=== PATIENT | male | born 1945 | race Caucasian/White ===

== ENCOUNTER → 2017-02-14 | Day surgery (SDC) | payer OTHER ==
[~2017-02-14] MED LIST: ASPIRIN EC 325 MG TAB PO ONE; ASPIRIN EC 81 MG TAB PO ONE; ATROPINE SULFATE 1 MG/10 ML SYR IVP PRN; DIAZEPAM 5 MG TAB ONE; DIAZEPAM 5 MG TAB PO ONE; FAMOTIDINE 20 MG TAB ONE; FAMOTIDINE 20 MG TAB PO ONE; HEPARIN 10,000 UNIT/10 ML MDV ONE; HYDROCODONE/APAP 5/325 TAB PO PRN; IOPAMIDOL (ISOVUE-370) 150 ML BTL IV ONE; LIDOCAINE 1% 300 MG/30 ML SDV ONE; MIDAZOLAM 2 MG/2 ML VIAL ONE; NITROGLYCERIN 0.4 MG BTL SL PRN; NS 1,000 ML IV ONE; ONDANSETRON 4 MG/2 ML VIAL IVP PRN; OXYCODONE/APAP 5/325 TAB PO PRN; diphenhydrAMINE 25 MG CAP PO ONE; fentaNYL 100 MCG/2 ML INJ ONE
--- NOTE | 2017-02-14 10:32 | CPEKG ---
Heart Rate: 72 RR Interval: 833 P-R Interval: 204 QRSD Interval: 88 QT Interval: 408 QTC Interval: 447 P [place]: 86 QRS [place]: 25 T Wave [place]: 54 EKG Severity - NORMAL ECG - EKG Impression: SINUS RHYTHM Electronically Signed By: Melchor Crsos 14-Feb-2017 14:10:10
[2017-02-14 10:52] LABS: % IMMATURE GRANULYOCYTES 0.2 % (0.0-1.1); ABSOLUTE IMMATURE GRANULOCYTES 0.01 10^3/uL (0.00-0.10); ADD DIFF? NO; ADD MORPH? NO; ADD SCAN? NO; ATYPICAL LYMPHOCYTE FLAG 0 (0-99); FRAGMENT RBC FLAG 10 (0-99); HEMATOCRIT 42.9 % (40.0-51.0); HEMOGLOBIN 14.9 g/dL (13.7-17.5); LEFT SHIFT FLG 0 (0-99); LIPEMIA HEMOLYSIS FLAG 90 (0-99); MEAN CELL HEMOGLOBIN 32.4 pg (27.9-34.1); MEAN CELL HEMOGLOBIN CONCENTR. 34.7 g/dL (32.4-36.7); MEAN CELL VOLUME 93.3 fL (81.5-99.8); MEAN PLATELET VOLUME 9.8 fL (8.7-11.7); PLATELET CLUMPS FLAG 10 (0-99); PLATELET COUNT 233 10^3/uL (150-400); RED CELL DISTRIBUTION WIDTH 11.9 % (11.5-15.2)
[2017-02-14 11:00] LABS: INR 0.93 (0.83-1.16); PROTIME(PATIENT) 12.4 SEC (12.0-15.0)
[2017-02-14 11:14] LABS: ANION GAP 8 mEq/L (8-16); CALCIUM 9.4 mg/dL (8.5-10.4); CARBON DIOXIDE 23 mEq/l (22-31); CHLORIDE 108 mEq/L (97-110); CHOLESTEROL 162 mg/dL (140-220); CHOLESTEROL/HDL RATIO 3.86 RATIO (1.00-4.97); CREATININE 0.9 mg/dL (0.7-1.3); GLOMERULAR FILTRATION RATE > 60; GLUCOSE 128 mg/dL (70-100); HIGH DENSITY LIPOPROTEIN 42 mg/dL (40-65); LDL/HDL RATIO 1.62 RATIO (1.00-3.64); LOW DENSITY LIPOPROTEIN 68 mg/dL (80-100); MAGNESIUM 1.8 mg/dL (1.6-2.3); NON-HIGH DENSITY LIPOPROTEIN 120 mg/dL (90-129); POTASSIUM 4.7 mEq/L (3.5-5.2); SODIUM 139 mEq/L (134-144); TRIGLYCERIDE 263 mg/dL (40-150); VERY LOW DENSITY LIPOPROTEINS 52 mg/dL (8-25)
--- NOTE | 2017-02-14 22:53 | CPIP ---
[f rep st] INVASIVE CARDIAC PROCEDURE DATE OF PROCEDURE: 02/14/2017 INDICATION: The patient is 71 years old. He has known coronary disease. He underwent bypass surge ry 2 years ago in [place]. He has 2 vessels that have been bypassed. He presents now with symptoms of exertional dyspnea and an abnormal stress myocardial perfusion imaging study suggesting anterior ischemia that spares the septum. PROCEDURES: 1. Diagnostic left heart catheterization. 2. Coronary angiography. 3. Left ventriculography. 4. Saphenous vein graft angiography. 5. Left internal mammary artery graft angiography. TECHNIQUE: Following informed consent and in the fasting state, the patient was brought to the [facility] catheterization laboratory. His right groin was prepped and draped in the usual sterile fashion . 2% lidocaine was infiltrated into the groin. Using modified Seldinger technique, a 6-[place] Safe sheath was placed. Using the JL4 and JR4, imaging of the [place] coronary arteries was performed. Using the pigtail catheter, left ventriculography was performed as well as an aortic root angiogram. Using the internal mammary artery graft catheter, imaging of the left internal mammary artery was performed. Using the JR catheter, imaging of the saphenous vein graft to an obtuse marginal was per formed. Following the procedure, all catheters were removed from the body. FINDINGS: HEMODYNAMICS: Left ventricular pressure 143/9/18 mmHg. Aortic pressure 133/68/97 mmHg. CORONARY ANGIOGRAPHY: Left main: The left main is subtotally occluded in the mid portion of the ve ssel. There is antegrade opacification to the very proximal septal perforators and what appears to be a very small, severely diseased ramus intermedius branch. There is no antegrade opacification of the [place] LAD or circumflex. Left anterior descending: The left anterior descending is, as noted above, not opacified with nativ e injections of the left main. It is seen upon injection of the PASCUAL to the LAD. Circumflex: The circumflex is, as noted above, not opacified with [place] injections of the left debbie n. The obtuse marginal branch is opacified upon injection of the saphenous vein graft to the obtuse marginal; however, the [place] circumflex does not retrograde opacify. Right coronary artery: This is dominant. The vessel itself is diffusely diseased and tortuous. Th ere is a PDA as well as several posterolaterals. There is a mid 50% lesion immediately prior to the crux. The proximal vessel is extremely tortuous. PASCUAL to the LAD: The PASCUAL to the LAD is patent, both in its proximal and distal anastomoses. There was excellent opacification retrograde of the LAD back to the point of occlusion at the left main. There is also filling of a small, diffusely diseased diagonal branch. Saphenous vein graft to the obtuse marginal branch: This graft is widely patent throughout its cour se as well as the anastomoses. There is retrograde opacification of the obtuse marginal branch back to the point of occlusion at the origin from the left main. There is, however, no opacification of the [place] circumflex. LEFT VENTRICULOGRAPHY: Ejection fraction is noted to be normal at 55% to 60%. There is normal and homogeneous contractility of all cardiac segments. No significant mitral insufficiency is noted. IMPRESSION: 1. Severe [place] coronary artery disease as described above with essentially an occluded mid left m ain coronary artery and moderate right coronary artery disease. 2. Patent left internal mammary artery graft to the left anterior descending and saphenous vein gra ft to an obtuse marginal branch. 3. Preserved left ventricular systolic function with an ejection fraction of 55% and normal wall mo tion. 4. Slightly elevated end-diastolic pressure. 5. Abnormal stress myocardial perfusion demonstrating anterior ischemia which spares the septum, wh ich is explained anatomically due to likely ischemia in the distribution of the diagonal branches. 6. Symptoms of exertional dyspnea. RECOMMENDATIONS: The patient will be managed medically and treated aggressively for secondary preve ntion. /[id number]/MODL
== END | disposition home or self-care (01) ==
LOC: FCATH 10:09
PROVIDERS: ATTEND Internal Medicine Cardiovascular Disease
PROC: 4A023N7 Measurement of Cardiac Sampling and Pressure, Left Heart, Percutaneous Approach (ICD-10-PCS; principal; 2017-02-14)
PROC: B2151ZZ Fluoroscopy of Left Heart using Low Osmolar Contrast (ICD-10-PCS; principal; 2017-02-14)
PROC: B2111ZZ Fluoroscopy of Multiple Coronary Arteries using Low Osmolar Contrast (ICD-10-PCS; principal; 2017-02-14)
DX: I25.10 Atherosclerotic heart disease of native coronary artery without angina pectoris (principal); R94.39 Abnormal result of other cardiovascular function study; R06.09 Other forms of dyspnea; I10 Essential (primary) hypertension; E78.5 Hyperlipidemia, unspecified; E11.9 Type 2 diabetes mellitus without complications; M10.9 Gout, unspecified; F32.9 Major depressive disorder, single episode, unspecified; Z95.1 Presence of aortocoronary bypass graft; Z82.49 Family history of ischemic heart disease and other diseases of the circulatory system
CPT/HCPCS: C1760; J1644; J2250; J3010; Q9967